=== PATIENT | male | born 1970 | race Caucasian/White ===

== ENCOUNTER → 2017-10-22 | Outpatient (CLI) | payer OTHER ==
--- NOTE | 2017-10-22 23:16 | CONS ---
CONSULTATION REASON FOR CONSULTATION: Sleep apnea. HISTORY OF PRESENT ILLNESS: Jose Martin is a pleasant 47-year-old male patient, who was diagnosed having severe obstructive sleep apnea based on the sleep study that was done back in 2012. Specifically the patient had a sleep study was done on 11/04/2012 and was found to have an AHI of 66 consistent with severe disease and he was titrated to a CPAP pressure of 11 cm of water. He was given a Vergara FX medium size mask. The patient is coming in for follow up. At the same time he is interested in renewing his CPAP supplies. I have not seen this patient for almost 5 years. He tells me that his interval history is essentially negative for any new onset medical problems or issues. His weight has been stable at 243 to 244. The patient has been wearing his CPAP every night. He has been very compliant. He has been averaging more than 6 hours of sleep per night. He wakes up alert and refreshed during the day. He goes to bed around 9 p.m., wakes up 3:00 am in the morning. No snoring while on the CPAP machine. He does not wake up feeling tired and he does not have any trouble paying attention or any problems with memory or concentration. No history of any motor vehicle accident and his treatment has been very successful for now. His current [place] Score is at 10. No other complaints otherwise. PAST MEDICAL HISTORY: Obstructive sleep apnea. PAST SURGICAL HISTORY: Includes ACL repair bilateral. DRUG ALLERGIES: Not known. OUTPATIENT MEDICATIONS ARE: None. SOCIAL HISTORY: Nonsmoker. No history of alcohol. No history of drugs. FAMILY HISTORY: Negative for obstructive sleep apnea. Positive for hypertension. REVIEW OF SYSTEMS: 12-point review of system was done. Positive findings are mentioned above in the history of present illness. Specifically there was no insomnia, no choking or gasping for air. No nocturia, no grinding of the teeth. No anxiety or panic attacks. No palpitation. No heartburn. No depression. No restlessness in lower extremities. No claustrophobia. No sexual dysfunction. PHYSICAL EXAMINATION: BP is 141/78, pulse 80, respirations 16, temperature 99.0. Neck size is 16 inches, weight is 244. Height is 5 feet 11 inches. GENERAL APPEARANCE: Calm comfortable no acute distress. Head is atraumatic, normocephalic. NECK: Supple. There is no JVD, no goiter or neck masses. Mallampati class 3. LUNGS: Clear to auscultation. HEART: Sounds regular rhythm. Normal S1, S2. No S3. No murmurs. ABDOMEN: Soft, nontender. No organomegaly. EXTREMITIES: No edema. No cyanosis or clubbing. NEUROLOGIC: Alert and oriented x3. There is no focal neurological deficits. PSYCHIATRIC: Appropriate mood and affect. IMPRESSION: Severe symptomatic obstructive sleep apnea with an AHI of 66 which is well treated with CPAP pressure of 11 cm of water. PLAN: The patient treatment remains successful over the past 5 years. I do not see the need to repeat sleep study. The patient will be given his CPAP supplies including a Vergara FX mask, tubing filter and medication chamber. He will contact me back if there is any worsening in his condition. Otherwise he is stable for now. I will see him back in a year's time. MMODL / IJN: [id number] /
== END | disposition home or self-care (01) ==
LOC: SLEEP 14:25
PROVIDERS: ATTEND Internal Medicine Critical Care Medicine
DX: G47.33 Obstructive sleep apnea (adult) (pediatric) (principal); Z99.89 Dependence on other enabling machines and devices
CPT/HCPCS: 99211

== ENCOUNTER 2020-11-04 08:40 | Day surgery (SDC) | payer OTHER ==
[2020-11-01 14:06] VITALS: BMI 40.1
[2020-11-04] MEDS ORDERED: LIDOCAINE 1% (10MG/ML) FOR IV START INTRADERMA ONE (08:52)
[2020-11-04] MEDS ORDERED: LACTATED RINGERS 1,000 ML IV SCH (08:53)
[2020-11-04 09:09] VITALS: RESP 16; TEMP 97.6
[2020-11-04] MEDS ORDERED: PROPOFOL 10 MG/ML 20 ML VIAL IV ONE (09:19)
--- NOTE | 2020-11-04 09:43 | P.PCN ---
Date of Procedure: 11/04/20 Procedure(s) Performed: BRIEF HISTORY: Patient is a 50-year-old pleasant 8 male scheduled for an elective colonoscopy as a part of screening for colorectal neoplasia. PROCEDURE PERFORMED: Colonoscopy. PREOPERATIVE DIAGNOSIS: Screening for colon cancer. IV sedation per Anesthesia. PROCEDURE: After informed consent was obtained, the patient, was brought into the endoscopy unit. IV sedation was administered by Anesthesia under continuous monitoring. Digital rectal examination was normal. Initially the Olympus CF-160 flexible video colonoscope was then inserted in the rectum, gradually advanced into the cecum without any difficulty. Careful examination was performed as the scope was gradually being withdrawn. Ileocecal valve and the appendiceal orifice were visualized and appeared normal. Prep was excellent. Mucosa of the cecum, ascending colon, transverse colon, descending colon, sigmoid colon, and rectum appeared normal. Retroflexion was performed in the rectum and no lesions were seen. The patient tolerated the procedure well. IMPRESSION: Normal-appearing colon from rectum to cecum with no evidence of colitis or colorectal neoplasia . RECOMMENDATIONS: Findings of this examination were discussed with the patient as well as his family. He was advised to have a repeat screening colonoscopy in 10 years..
[2020-11-04 10:11] VITALS: BP 116/75; PULSE 63
== END 2020-11-04 10:24 | disposition home or self-care (01) ==
LOC: ORWHC2ENDO 08:40
PROVIDERS: ATTEND Internal Medicine Gastroenterology
DX: Z12.11 Encounter for screening for malignant neoplasm of colon (principal); Z80.0 Family history of malignant neoplasm of digestive organs; I10 Essential (primary) hypertension; E66.9 Obesity, unspecified; Z79.899 Other long term (current) drug therapy; Z68.41 Body mass index [BMI] 40.0-44.9, adult
CPT/HCPCS: J2704; G0105; 45378

== ENCOUNTER → 2021-09-25 | Outpatient (CLI) | payer OTHER ==
[2021-09-25 15:09] VITALS: BP 170/79; PULSE 83; RESP 18; TEMP 98.5; BMI 39.3
--- NOTE | 2021-09-25 15:52 | P.HPBAR ---
Bariatric H&P - History & Physicial H&P Date: 09/25/21 History & Physicial: Visit/CC: initial visit Patient initial contact: Initial weight: Initial weight in pounds: Height: 6 ft 0.5 in Initial BMI: Last weight: Current weight: 133.356 kg Current weight in pounds: 294.00 Current BMI: 39.3 [place] body weight (based on NIH guidelines): 82.1 kg Excess body weight loss: The patient is a 50 year-old M who presents for Bariatric Assessment. Patient presents today for presurgical consultation. His edition sleeve gastrectomy. He's had a lifetime problems obesity. His BMI is 39. His has a LAP-BAND. He seems to understand a lot of bariatric surgery Past Medical History Past Medical History: Hypertension, Sleep Apnea/CPAP/BIPAP Additional Past Medical History / Comment(s): C-PAP MACHINE, OCCASIONAL BLOOD IN STOOL. History of Any Multi-Drug Resistant Organisms: None Reported Past Surgical History: Appendectomy, Orthopedic Surgery Additional Past Surgical History / Comment(s): KNEE SURGERIES, ACL, COLONOSCOPY Past Anesthesia/Blood Transfusion Reactions: No Reported Reaction, Motion Sickness Past Psychological History: No Psychological Hx Reported Smoking Status: Former smoker Past Alcohol Use History: Occasional Additional Past Alcohol Use History / Comment(s): QUIT SMOKING 22 YEARS AGO (1998), STARTED AGE 15, SMOKED 2PPD. Past Drug Use History: None Reported - Past Family History Mother Family Medical History: Cancer Additional Family Medical History / Comment(s): COLON CANCER Surgical - Exam Vital Signs Temp Pulse Resp BP 98.5 F 83 18 170/79 09/25/21 15:03 09/25/21 15:03 09/25/21 15:03 09/25/21 15:03 - General well developed, well nourished, no distress - Eyes PERRL - ENT normal pinna - Neck no masses - Respiratory normal expansion - Cardiovascular Rhythm: regular - Abdomen Abdomen: soft, non tender Bariatric Assessment & Plan Plan: RBC, BMI 39. Patient will be scheduled for EGD. He'll follow-up in clinic after this is performed. Bariatric Checklist Checklist: Plan: Checklist: EGD: 1. Hiatal hernia: 2. H. Pylori: HgbA1c: Vitamin D: Smoking: Primary care physician referral: Dr. Brian Psychiatry clearance: Cardiology clearance: Sleep study: Diet journal: VTE risk score: VTE risk level: Rehab needs at discharge:
== END ==
LOC: BARWHC3 14:27
PROVIDERS: ATTEND Surgery
DX: E66.9 Obesity, unspecified (principal); I10 Essential (primary) hypertension; Z87.891 Personal history of nicotine dependence; Z68.39 Body mass index [BMI] 39.0-39.9, adult; Z79.899 Other long term (current) drug therapy
CPT/HCPCS: 99211

== ENCOUNTER → 2021-11-14 | Outpatient (CLI) | payer OTHER ==
--- NOTE | 2021-11-14 16:40 | PN ---
PROGRESS NOTE SLEEP CENTER PROGRESS NOTE: This 51-year-old male patient, a long-term CPAP user for symptomatic obstructive sleep apnea, is coming in for a followup. His last evaluation was in October of 2017. At that time the patient demonstrated successful use of CPAP. The patient is continuing to use the same CPAP unit that he was given back in 2012. He has been on same machine for the past 9 years; this is an older-generation Respironics unit which is set at a pressure of 11 cm of water with C-flex of 3. The patient continues to use Vergara FX medium-sized nasal pillows. Note that his baseline AHI was 66, consistent with severe obstructive sleep apnea. His weight is up; currently he is weighing around 290 pounds, knowing that back in 2017 his weight was around 240. As such, the patient has gained a significant amount of weight. Nevertheless, treatment has stayed successful. No adjustments on the pressure setting have been done. The patient has been averaging around 7 hours and 36 minutes and his compliance for more than 4 hours is 100%. I cannot tell the success of treatment, based on the fact that AHI while on treatment cannot be measured with his older-generation CPAP unit. No snoring while on CPAP. He is waking up refreshed and alert during the day. He is averaging a good 6-7 hours of sleep at least per night. No hypersomnia or sleepiness during the day. No aerophagia. No abdominal distention. No belching or burping. No flatus. No chest pain. No shortness of breath. No sleepwalking or sleeptalking. No history of any motor vehicle accident because of feeling drowsy or sleepy. No other cardiovascular complications such as CAD, VA, atrial fibrillation, cardiac arrhythmias, syncope, etc. REVIEW OF SYSTEMS: Fourteen-point review of system was done. Positive findings are all mentioned above in the history of present illness. Of significance is the patient's 50-pound weight gain over the past 3 years. Nevertheless, his treatment has remained somewhat successful. No nocturia. No choking or gasping for air. No snoring while on CPAP therapy. He is going to bed between 6 and 7 a.m., getting out of bed around 1 to 2 p.m. He is averaging a good 6 to 8 hours of sleep. He is able to initiate and maintain sleep without any major difficulties. No sleepwalking or sleeptalking. No other parasomnias. PHYSICAL EXAMINATION: BP is 127/82, pulse 72, respirations 16, temperature 98.3, saturation 98% on room air. Height is 5 feet 11 inches, weight is 291, and neck size is 18 inches. BMI is 40.1. MEDICATIONS: Medication includes Norvasc 5 mg twice a day. IMPRESSION: 1. Symptomatic obstructive sleep apnea; AHI of 66. The patient continues to treat himself with CPAP at a pressure of 11 cm of water with a C-flex of 3 utilizing a Vergara FX nasal pillow. 2. Obesity with interval 50-pound weight gain. Current body mass index is up to 40 and weight is up to 291. 3. Hypersomnia, improved while on CPAP therapy. [place] score is down to 4. 4. Hypertension. PLAN: 1. Continue using the current CPAP at the same level of pressure. 2. Vergara FX medium-sized nasal pillows will be kept as mask of choice. 3. Patient was interested in updating his CPAP machine. I am not sure if he is going to obtain a CPAP machine immediately, as the machines are currently on back order and there is a delay in delivering these machines to patients. I am going to order a new CPAP machine. Hopefully this will be a ResMed AirSense 11, and this will be set at a pressure of 11 cm of water with C-flex of 3. I am hoping that within next 3 to 4 months the patient will be obtaining a new machine. Following that, he will see me back in followup to discuss treatment results and compliance. I will make further adjustments on the machine if needed. ERIC / CURTIS: [id number] /
== END ==
LOC: SLEEP 13:50
PROVIDERS: ATTEND Internal Medicine Critical Care Medicine
DX: G47.33 Obstructive sleep apnea (adult) (pediatric) (principal); E66.9 Obesity, unspecified; I10 Essential (primary) hypertension; Z68.41 Body mass index [BMI] 40.0-44.9, adult; Z99.89 Dependence on other enabling machines and devices
CPT/HCPCS: 99211

== ENCOUNTER → 2022-04-10 | Outpatient (CLI) | payer OTHER ==
--- NOTE | 2022-04-10 15:40 | P.PN ---
Subjective Progress Note Date: 04/10/22 This is a 51-year-old male patient who is coming in for a compliance to check regarding his new CPAP unit. The patient was given a ResMed 11. The patient is a long-time CPAP user. He updated his machine recently. His current machine is set at a pressure of 11 cm of water with C-Flex of 3. Note that the patient has severe M[place]SE with an AHI of 66 and based on his using a Airfit P10 nasal pillow medium size. I checked a compliance data and the data that has been collected between 03/10/2022 and 04/08/2022 indicated excellent usage. The patient used the machine every night and didn't achieve more than 4 hours of CPAP use 93% of the time. His been averaging around 7 hours and 18 minutes of CPAP use per night. His median leak is 0.1 L and the average leak is around 10.6 L and his AHI while on treatment is not 1.8. His weight has remained stable. No major hypersomnia and sleepiness during the day. No high risk, fatigued during the day. Does not fall asleep during day-to-day activities. His machines function is quiet and is not snoring while on treatment Objective - Exam BP is 150/80, with a pulse of 80, respiration of 16, temperature 97.5, [place] score at 2 and a saturation 90% on room air. The patient appeared well nourished and normally developed. Vital signs as documented. Head exam is unremarkable. No scleral icterus or corneal arcus noted. Neck is without jugular venous distension, thyromegaly, or carotid bruits. Carotid upstrokes are brisk bilaterally. Lungs are clear to auscultation and percussion. Cardiac exam reveals the PMI to be normally sized and situated. Rhythm is regular. First and second heart sounds normal. No murmurs, rubs or gallops. Abdominal exam reveals normal bowel sounds, no masses, no organomegaly and no aortic enlargement. Extremities are nonedematous and both femoral and pedal pulses are normal.Examination of the skin revealed no evidence of significant rashes, suspicious appearing nevi or other concerning lesions.Neurologically, the patient is awake and alert and the patient does not have any focal neurological deficit. Cranial nerves are essentially intact. Assessment and Plan Plan: Impression severe symptomatic obstructive sleep apnea, AHI of 66 at baseline, the patient is receiving successful CPAP therapy and the patient is currently using a new generation ResMed 11 which is set at a pressure of 11 cm of water and the m achine is functional and the patient is demonstrating excellent compliance Hypersomnia, recovered Hypertension Obesity with a weight of 294 Plan Compliancy evaluation was done and the patient's usages adequate for now. Continue using the same pressure setting Keep the patient on Airfit P10 medium size nasal pillow Climates control his automatic Encourage weight loss We'll see me back in 2 years time in follow-up. Treatment is successful for now.
== END ==
LOC: SLEEP 14:16
PROVIDERS: ATTEND Internal Medicine Critical Care Medicine
DX: G47.30 Sleep apnea, unspecified (principal); Z99.89 Dependence on other enabling machines and devices; I10 Essential (primary) hypertension; E66.9 Obesity, unspecified